=== PATIENT | male | born 1940 | race Caucasian/White ===

== ENCOUNTER 2016-11-17 15:01 | Inpatient (IN) | payer OTHER ==
[~2016-11-17] VITALS: Ht 175.3 cm; Wt 98.0 kg
[2016-11-17] VITALS (7 sets, daily range): BP systolic 140–179; BP diastolic 79–114; PULSE 48–92; RESP 17–20; TEMP 95.9–97.7; O2SAT 93–98
[2016-11-17] MEDS: D5-NS + KCL 20 MEQ INJ 1,000 ML IV SCH (00:30)
[~2016-11-17 15:01] MED LIST: LACTATED RINGER'S 1000 ML INJ 3,000 ML IV ONE; NEOSTIGMINE 3 MG/3 ML SYR IV ONE; ONDANSETRON HCL 4 MG/2 ML VIAL IV PUSH ONE; PROPOFOL 200 MG/20 ML AMP IV ONE; ePHEDrine/NS 50 MG/5 ML SYR IV ONE
[2016-11-17] MEDS ORDERED: LIPI10TA PO (15:59)
[2016-11-17] MEDS ORDERED: ASPI81CH CHEW (15:59)
[2016-11-17] MEDS ORDERED: SODIUM CHLOR 0.9% 1000 ML INJ 1,000 ML IV SCH ×2 (16:08→16:50)
[2016-11-17] MEDS ORDERED: SODIUM CHLORIDE 0.9% FLUSH 5 ML FLUSH IVF PRN ×2 (16:15→23:45)
[2016-11-17] MEDS ORDERED: ONDANSETRON HCL 4 MG/2 ML VIAL IVP ONE (16:15)
[2016-11-17] MEDS ORDERED: MORPHINE SULFATE 4 MG/ML INJ IV PUSH ONE (16:15)
--- NOTE | 2016-11-17 16:32 | PD ---
HPI Chief Complaint: Abdominal Pain Time Seen by Provider: 16:00 Travel History International Travel<30 days: Yes Contact w/Intl Traveler<30days: Yes Name of Country Traveled to: [place] Traveled to known affect area: No History of Present Illness HPI 76-year-old male with history of CAD, stents, hyperlipidemia, from [place], sent in from an outpatient radiology center after CT abdomen pelvis today showed an incarcerated periumbilical hernia with bowel obstruction. Patient reports that he has been vomiting for the past 5 days and unable to tolerate by mouth. Last bowel movement was about 5 days ago. He reports history of umbilical hernia repair about 15 years ago with what he believes was with mesh. No other abdominal surgeries. The patient noticed that the hernia was protruding yesterday evening. He has a moderate amount of pain in this area. PFSH Past Medical History High Cholesterol: Yes Diminished Hearing: Yes ([place]) Immunizations Current: Yes Tetanus Vaccination: Unknown Influenza Vaccination: Yes Past Surgical History Abdominal Surgery: Yes (umbilical hernia) Coronary Stent: Yes Other Surgery: Yes (valve) Social History Alcohol Use: Yes (occ) Tobacco Use: No Substance Use: No Allergies-Medications (Allergen,Severity, Reaction): Coded Allergies: No Known Allergies (Unverified , 11/17/16) Reported Meds & Prescriptions Reported Meds & Active Scripts Active Reported Aspirin 81 Mg Chew 81 Mg CHEW DAILY Lipitor (Atorvastatin Calcium) 10 Mg Tab 10 Mg PO HS Review of Systems Except as stated in HPI: all other systems reviewed are Neg Physical Exam Narrative GENERAL: Well-developed, well-nourished, no distress. SKIN: Warm and dry. Anterior abdominal wall/periumbilical area is erythematous and slightly dusky. HEAD: Atraumatic. Normocephalic. EYES: Pupils equal and round. No scleral icterus. No injection or drainage. ENT: Mucous membranes pink and moist. CARDIOVASCULAR: Regular rate and rhythm. No murmur appreciated. RESPIRATORY: No accessory muscle use. Clear to auscultation. Breath sounds equal bilaterally. GASTROINTESTINAL: Abdomen soft, nondistended. Mild diffuse tenderness without peritoneal signs. There is a moderate sized periumbilical hernia that is firm with skin changes as above, unable to be reduced. MUSCULOSKELETAL: No obvious deformities. No clubbing. No cyanosis. No edema. NEUROLOGICAL: Awake and alert. No obvious cranial nerve deficits. Motor grossly within normal limits. Normal speech. PSYCHIATRIC: Appropriate mood and affect; insight and judgment normal. Data Data Last Documented VS Vital Signs Date Time Temp Pulse Resp B/P Pulse Ox O2 Delivery O2 Flow Rate FiO2 11/17/16 16:00 92 18 179/107 98 Room Air 11/17/16 15:26 97.7 Orders Complete Blood Count With Diff (11/17/16 16:08) Comprehensive Metabolic Panel (11/17/16 16:08) Lactic Acid (11/17/16 16:08) Prothrombin Time / Inr (Pt) (11/17/16 16:08) Act Partial Throm Time (Ptt) (11/17/16 16:08) Iv Access Insert/Monitor (11/17/16 16:08) Ecg Monitoring (11/17/16 16:08) Oximetry (11/17/16 16:08) Morphine Inj (Morphine Inj) (11/17/16 16:15) Ondansetron Inj (Zofran Inj) (11/17/16 16:15) Sodium Chlor 0.9% 1000 Ml Inj (Ns 1000 M (11/17/16 16:08) Sodium Chloride 0.9% Flush (Ns Flush) (11/17/16 16:15) Electrocardiogram (11/17/16 16:08) Ng Gastric Tube Insert/Monitor (11/17/16 16:48) Sodium Chlor 0.9% 1000 Ml Inj (Ns 1000 M (11/17/16 16:50) Admit Order (Ed Use Only) (11/17/16 16:59) ^ Notify Upon Admission (11/17/16 16:59) Consult Hospitalist (11/17/16 ) Labs Laboratory Tests Test 11/17/16 16:25 White Blood Count 8.3 TH/MM3 Red Blood Count 6.21 MIL/MM3 Hemoglobin 18.1 GM/DL Hematocrit 55.5 % Mean Corpuscular Volume 89.3 FL Mean Corpuscular Hemoglobin 29.2 PG Mean Corpuscular Hemoglobin 32.7 % Concent Red Cell Distribution Width 13.4 % Platelet Count 174 TH/MM3 Mean Platelet Volume 7.7 FL Neutrophils (%) (Auto) 78.9 % Lymphocytes (%) (Auto) 6.1 % Monocytes (%) (Auto) 13.8 % Eosinophils (%) (Auto) 0.1 % Basophils (%) (Auto) 1.1 % Neutrophils # (Auto) 6.6 TH/MM3 Lymphocytes # (Auto) 0.5 TH/MM3 Monocytes # (Auto) 1.1 TH/MM3 Eosinophils # (Auto) 0.0 TH/MM3 Basophils # (Auto) 0.1 TH/MM3 CBC Comment DIFF FINAL Differential Comment AUTO DIFF CONFIRMED Platelet Estimate NORMAL Platelet Morphology Comment NORMAL Prothrombin Time 11.9 SEC Prothromb Time International 1.1 RATIO Ratio Activated Partial 27.3 SEC Thromboplast Time Sodium Level 137 MEQ/L Potassium Level 3.5 MEQ/L Chloride Level 99 MEQ/L Carbon Dioxide Level 24.9 MEQ/L Anion Gap 13 MEQ/L Blood Urea Nitrogen 55 MG/DL Creatinine 1.40 MG/DL Estimat Glomerular Filtration 49 ML/MIN Rate Random Glucose 136 MG/DL Lactic Acid Level 2.0 mmol/L Calcium Level 9.8 MG/DL Total Bilirubin 1.2 MG/DL Aspartate Amino Transf 37 U/L (AST/SGOT) Alanine Aminotransferase 30 U/L (ALT/SGPT) Alkaline Phosphatase 73 U/L Total Protein 7.4 GM/DL Albumin 3.0 GM/DL MDM Medical Decision Making Medical Screen Exam Complete: Yes Emergency Medical Condition: Yes Interpretation(s) EKG: Atrial flutter, rate 62, normal axis, normal intervals, nonspecific lateral ST/T changes, no ST segment elevations. Differential Diagnosis Strangulated umbilical hernia, incarcerated umbilical hernia, bowel obstruction Narrative Course CT abdomen pelvis reading from today obtained and shows a periumbilical anterior abdominal hernia containing small bowel loops and causing moderate to severe proximal small bowel instruction. Ice placed to hernia site. I attempted to reduce the hernia at the bedside, however I was unsuccessful. 4:46 PM: Case discussed with on-call general surgeon Dr. Stein. He recommends NG tube placement and transfer to the [facility] where he will evaluate the patient and discuss surgical management with the patient. Patient was made aware of plan for admission to the [facility] for likely operative repair of strangulated umbilical hernia with small bowel obstruction. The patient will be transferred emergently. NG tube placed by nurse. There is a small amount of blood returned. No other material was aspirated from the stomach. Blood could be secondary to local trauma secondary to NG tube placement. The patient was given a dose of Protonix in case this is a gastric ulcer that is bleeding. Diagnosis Primary Impression: Incarcerated umbilical hernia Additional Impression: Small bowel obstruction Admitting Information Admitting Physician Requests: Admit Scot Lawton MD Nov 17, 2016 16:32
[2016-11-17 16:44] LABS: AUTOMATED NEUTROPHIL # 6.6 TH/MM3 (1.8-7.7); BASOPHIL # 0.1 TH/MM3 (0-0.2); BASOPHIL % 1.1 % (0.0-2.0); EOSINOPHIL % 0.1 % (0.0-4.0); HEMATOCRIT 55.5 % (39.0-51.0); HEMO FLAGS DIFF FINAL; LYMPH % 6.1 % (9.0-44.0); LYMPHOCYTE # 0.5 TH/MM3 (1.0-4.8); MEAN CELL VOLUME 89.3 FL (80.0-100.0); MEAN CORPUSCULAR HEMOGLOBIN 29.2 PG (27.0-34.0); MEAN CORPUSCULAR HGB CONC 32.7 % (32.0-36.0); MONO % 13.8 % (0.0-8.0); NEUT % 78.9 % (16.0-70.0); PLATELET COUNT 174 TH/MM3 (150-450); RED BLOOD COUNT 6.21 MIL/MM3 (4.50-5.90); RED CELL DISTRIBUTION WIDTH 13.4 % (11.6-17.2); WHITE BLOOD COUNT 8.3 TH/MM3 (4.0-11.0)
[2016-11-17 16:45] LABS: CHLORIDE 99 MEQ/L (98-107); POTASSIUM 3.5 MEQ/L (3.5-5.1); SODIUM (NA) 137 MEQ/L (136-145)
[2016-11-17 16:48] LABS: ANION GAP 13 MEQ/L (5-15); BICARBONATE 24.9 MEQ/L (21.0-32.0); BLOOD UREA NITROGEN 55 MG/DL (7-18)
[2016-11-17 16:50] LABS: APTT (PATIENT) 27.3 SEC (24.3-30.1); INTERNATIONAL NORMALIZED RATIO 1.1 RATIO; PROTHROMBIN TIME - PATIENT 11.9 SEC (9.8-11.6)
[2016-11-17 16:51] LABS: ALT (GPT) 30 U/L (12-78); AST (GOT) 37 U/L (15-37); GLOMERULAR FILTRATION RATE 49 ML/MIN (>89)
[2016-11-17 16:53] LABS: TOTAL BILIRUBIN ADULT 1.2 MG/DL (0.2-1.0)
[2016-11-17 16:54] LABS: ALKALINE PHOSPHATASE 73 U/L (45-117)
[2016-11-17 17:29] LABS: PLATELET ESTIMATE SMEAR NORMAL (NORMAL); PLATELET MORPHOLOGY NORMAL (NORMAL); SCAN/DIFF AUTO DIFF CONFIRMED
[2016-11-17] MEDS: PANTOPRAZOLE SODIUM 40 MG VIAL IV PUSH ONE ×2 (17:48→21:38)
[2016-11-17] MEDS ORDERED: ceFAZolin 2 GM PREMIX 50 ML IV SCH (19:45)
[2016-11-17] MEDS ORDERED: SODIUM CHLORID 0.9% 500 ML IV SCH (20:30)
[2016-11-17] MEDS ORDERED: LACTATED RINGER'S 1000 ML IV SCH (20:30)
[2016-11-17] MEDS ORDERED: BUPIVACAINE/EPINEPHRINE 0.25% PF 30 ML VIAL ONE (20:49)
[2016-11-17] MEDS ORDERED: LIDOCAINE 1%/EPINEPHrine 1:100,000 SOLN 20 ML VIAL ONE (20:50)
[2016-11-17] MEDS ORDERED: metroNIDAZOLE 500 MG INJ 100 ML IV ONE (21:10)
[2016-11-17] MEDS ORDERED: ceFAZolin INJ 1,000 MG VIAL IV ONE (21:39)
[2016-11-17 22:29] LABS: HEMATOCRIT 38.1 % (39.0-51.0)
[2016-11-17 22:34] LABS: BLOOD GAS BASE EXCESS -3.1 mmol/L (-2-2); BLOOD GAS CARBOXYHEMOGLOBIN 1.9 % (0-4); BLOOD GAS HCO3 21 mmol/L (22-26); BLOOD GAS O2 HGB SATURATION 96 % (90-100); BLOOD GAS OXYGEN CONTENT 18.9 Vol % (12.0-20.0); BLOOD GAS PCO2 37 mmHg (38-42); BLOOD GAS PO2 163 mmHg (61-120); BLOOD GAS TOTAL HGB 13.7 G/DL (12.0-16.0); TEMP CORR TO 98.6
[2016-11-17 22:35] LABS: CRITICAL VALUE NO; DRAW SITE ART LINE; FIO2 50 %; OXYGEN DEVICE O R ABG; STAT YES
--- NOTE | 2016-11-17 23:31 | HHI.PR ---
Immediate Post Op Note Procedure Date: Nov 17, 2016 Pre Op Diagnosis: strangulated, incarcerated incisional hernia Post Op Diagnosis: same, necrotic small bowel Surgeon: Daquan Stein MD [employer](s): see or sheet Procedure: repair of incisional, incarcerated umbilical hernia, small bowel resection with primary anastomosis Findings: necrotic strangulated small bowel Complications: none Specimen(s) removed: small bowel, hernia sac Estimated blood loss: 100 Anesthesia: General Drains: NAI (10F sub q) IVF (9050) Patient to: PACU Patient Condition: Fair Daquan Stein MD Nov 17, 2016 23:31
[2016-11-17] MEDS ORDERED: DO NOT ADM ANY ANTICOAGULANT DRUGS XX PRN (23:41)
[2016-11-17] MEDS ORDERED: Post-op Orders (for Pharmacy) MISC XX ONE (23:41)
[2016-11-17] MEDS ORDERED: diphenhydrAMINE HCL 50 MG/ML VIAL IV PRN (23:45)
[2016-11-17] MEDS ORDERED: MORPHINE SULFATE 4 MG/ML INJ IV PRN (23:45)
[2016-11-17] MEDS ORDERED: NALOXONE HCL 0.4 MG/ML AMP IV PRN (23:45)
[2016-11-17] MEDS ORDERED: ONDANSETRON HCL 4 MG/2 ML VIAL IV PRN (23:45)
[2016-11-17] MEDS ORDERED: ACETAMINOPHEN/HYDROcodone 325 MG/5 MG TAB PO PRN (23:45)
[2016-11-17] MEDS ORDERED: fentaNYL CITRATE 250 MCG/5 ML AMP ONE ×2 (23:55)
[2016-11-18] VITALS (15 sets, daily range): BP systolic 118–161; BP diastolic 66–98; PULSE 52–78; RESP 14–22; TEMP 97.5–98; O2SAT 93–96
[2016-11-18 00:28] LABS: AUTOMATED NEUTROPHIL # 2.5 TH/MM3 (1.8-7.7); BASOPHIL % 0.1 % (0.0-2.0); EOSINOPHIL % 0.6 % (0.0-4.0); HEMO FLAGS DIFF FINAL; LYMPH % 10.6 % (9.0-44.0); LYMPHOCYTE # 0.3 TH/MM3 (1.0-4.8); MEAN CELL VOLUME 87.1 FL (80.0-100.0); MEAN CORPUSCULAR HEMOGLOBIN 30.3 PG (27.0-34.0); MEAN CORPUSCULAR HGB CONC 34.7 % (32.0-36.0); MONO % 10.8 % (0.0-8.0); NEUT % 77.9 % (16.0-70.0); PLATELET COUNT 115 TH/MM3 (150-450); RED BLOOD COUNT 5.28 MIL/MM3 (4.50-5.90); RED CELL DISTRIBUTION WIDTH 13.8 % (11.6-17.2); WHITE BLOOD COUNT 3.2 TH/MM3 (4.0-11.0)
--- NOTE | 2016-11-18 00:31 | RADRPT ---
EXAM DATE/TIME: 11/17/2016 23:52 [facility] COMPARISON: No previous studies available for comparison. INDICATIONS : Nasogastric tube placement post hernia repair. MEDICAL HISTORY : None. SURGICAL HISTORY : CABG. Umbilical hernia repair. ENCOUNTER: Initial ACUITY: 1 day PAIN SCORE: 0/10 LOCATION: Bilateral chest FINDINGS: A single view of the chest is obtained. Status post CABG. Nasogastric tube tip in stomach. Minimal b ibasilar subsegmental atelectasis. The cardiomediastinal contours are unremarkable. Osseous structur es are intact. CONCLUSION: 1. Bibasilar subsegmental atelectasis. 2. Nasogastric tube with tip in stomach. Evaristo Reddy MD on November 18, 2016 at 0:27 Board Certified Radiologist. This report was verified electronically.
[2016-11-18] MEDS: KETOROLAC TROMETHAMINE 30 MG/ML (IVP) VIAL IVP PRN ×2 (00:33→20:30)
[2016-11-18 00:47] LABS: BICARBONATE 24.4 MEQ/L (21.0-32.0); POTASSIUM 3.4 MEQ/L (3.5-5.1)
--- NOTE | 2016-11-18 01:44 | PD.CONS ---
HPI Service Critical Care Medicine Consult Requested By Primary Care Physician Non-Staff History of Present Illness HPI 76-year-old male with history of CAD, stents, hyperlipidemia, from [place], sent in from an outpatient radiology center after CT abdomen pelvis today showed an incarcerated periumbilical hernia with bowel obstruction. Patient reports that he has been vomiting for the past 5 days and unable to tolerate by mouth. Last bowel movement was about 5 days ago. He reports history of umbilical hernia repair about 15 years ago with what he believes was with mesh. No other abdominal surgeries. The patient noticed that the hernia was protruding yesterday evening. He had a moderate amount of pain in this area. Patient was transferred from [facility] to [facility] after being accepted by Dr. Setin from general surgery. He underwent repair of incisional , incarcerated umbilical hernia, small bowel resection with primary anastomosis under general anesthesia, EBL 100 cc, extubated postoperatively and transferred to PACU. He was noted to be in atrial flutter on a postop EKG with heart rate in the 60s. I reviewed his telemetry strip done around 3 PM from 12:30 which shows that patient has been in atrial flutter. Critical care consult was requested by Dr. Stein for medical management postoperatively. Patient tells me that he has had a history of irregular heartbeat about 4 years ago after surgery however is not aware of any atrial flutter of fibrillation recently. When I evaluated the patient he was laying in the PACU stretcher appeared comfortable in no acute distress. History was obtained by reviewing records and discussion with patient and nursing staff. Patient denies any chest pain, palpitations, shortness of breath currently. He does have some pain at the surgical site. History PFSH Past Medical History High Cholesterol: Yes Diminished Hearing: Yes ([place]) Immunizations Current: Yes Tetanus Vaccination: Unknown Influenza Vaccination: Yes Past Surgical History Abdominal Surgery: Yes (umbilical hernia) Coronary Stent: Yes Other Surgery: Yes (valve) Social History Alcohol Use: Yes (occ) Tobacco Use: No Substance Use: No Allergies-Medications Allergies-Medications (Allergen,Severity, Reaction): Coded Allergies: No Known Allergies (Unverified , 11/17/16) Reported Meds & Prescriptions Reported Meds & Active Scripts Active Reported Aspirin 81 Mg Chew 81 Mg CHEW DAILY Lipitor (Atorvastatin Calcium) 10 Mg Tab 10 Mg PO HS ROS Review of Systems Except as stated in HPI: all other systems reviewed are Neg Past Family Social History Allergies: Coded Allergies: No Known Allergies (Unverified , 11/17/16) Physical Exam Vital Signs Vital Signs Date Time Temp Pulse Resp B/P Pulse Ox O2 Delivery O2 Flow Rate FiO2 11/18/16 00:50 97.9 68 17 141/86 96 Nasal Cannula 3 11/18/16 00:30 69 16 142/87 95 Nasal Cannula 3 11/18/16 00:15 69 16 142/94 95 Nasal Cannula 3 11/18/16 00:00 62 15 155/90 94 Nasal Cannula 3 11/17/16 23:45 98.2 63 18 148/62 95 Nasal Cannula 3 11/17/16 20:00 95.9 65 20 169/103 94 11/17/16 19:20 57 18 140/91 97 11/17/16 18:50 51 20 148/79 96 Room Air 11/17/16 17:38 48 18 166/96 96 Room Air 11/17/16 17:35 98 Room Air 11/17/16 16:00 92 18 179/107 98 Room Air 11/17/16 15:26 97.7 84 17 159/114 93 Physical Exam Narrative GENERAL: Well-developed, well-nourished, no distress. SKIN: Warm and dry. Anterior abdominal wall/periumbilical area is erythematous and slightly dusky around surgical dressing site. HEAD: Atraumatic. Normocephalic. EYES: Pupils equal and round. No scleral icterus. No injection or drainage. ENT: Mucous membranes pink and moist. CARDIOVASCULAR: Regular rate and rhythm. No murmur appreciated. RESPIRATORY: No accessory muscle use. Clear to auscultation. Breath sounds equal bilaterally. GASTROINTESTINAL: Abdomen soft, nondistended. Dressing over surgical site which is clean dry and intact, erythema noted Surrounding skin over anterior abdominal wall. MUSCULOSKELETAL: No obvious deformities. No clubbing. No cyanosis. No edema. NEUROLOGICAL: Awake and alert. No obvious cranial nerve deficits. Motor grossly within normal limits. Normal speech. PSYCHIATRIC: Appropriate mood and affect; insight and judgment normal. Laboratory Laboratory Tests Test 11/17/16 11/17/16 11/17/16 11/18/16 16:25 22:01 22:15 00:13 White Blood Count 8.3 3.2 Red Blood Count 6.21 5.28 Hemoglobin 18.1 12.8 16.0 Hematocrit 55.5 38.1 46.0 Mean Corpuscular Volume 89.3 87.1 Mean Corpuscular Hemoglobin 29.2 30.3 Mean Corpuscular Hemoglobin 32.7 34.7 Concent Red Cell Distribution Width 13.4 13.8 Platelet Count 174 115 Mean Platelet Volume 7.7 7.2 Neutrophils (%) (Auto) 78.9 77.9 Lymphocytes (%) (Auto) 6.1 10.6 Monocytes (%) (Auto) 13.8 10.8 Eosinophils (%) (Auto) 0.1 0.6 Basophils (%) (Auto) 1.1 0.1 Neutrophils # (Auto) 6.6 2.5 Lymphocytes # (Auto) 0.5 0.3 Monocytes # (Auto) 1.1 0.3 Eosinophils # (Auto) 0.0 0.0 Basophils # (Auto) 0.1 0.0 CBC Comment DIFF FINAL DIFF FINAL Differential Comment AUTO DIFF CONFIRMED Platelet Estimate NORMAL Platelet Morphology Comment NORMAL Prothrombin Time 11.9 Prothromb Time International 1.1 Ratio Activated Partial 27.3 Thromboplast Time Sodium Level 137 139 Potassium Level 3.5 3.4 Chloride Level 99 104 Carbon Dioxide Level 24.9 24.4 Anion Gap 13 11 Blood Urea Nitrogen 55 45 Creatinine 1.40 0.94 Estimat Glomerular Filtration 49 78 Rate Random Glucose 136 120 Lactic Acid Level 2.0 Calcium Level 9.8 8.0 Total Bilirubin 1.2 Aspartate Amino Transf 37 (AST/SGOT) Alanine Aminotransferase 30 (ALT/SGPT) Alkaline Phosphatase 73 Total Protein 7.4 Albumin 3.0 Blood Gas Puncture Site ART LINE Blood Gas Patient Temperature 98.6 Blood Gas HCO3 21 Blood Gas Base Excess -3.1 Blood Gas Oxygen Saturation 96 Arterial Blood pH 7.38 Arterial Blood Partial 37 Pressure CO2 Arterial Blood Partial 163 Pressure O2 Arterial Blood Oxygen Content 18.9 Arterial Blood 1.9 Carboxyhemoglobin Arterial Blood Methemoglobin 1.0 Blood Gas Hemoglobin 13.7 Oxygen Delivery Device O R ABG Blood Gas Inspired Oxygen 50 Result Diagram: 11/18/16 0013 11/18/16 0013 Imaging Last Impressions Chest X-Ray 11/17/16 0000 Signed Impressions: Service Date/Time: Thursday, November 17, 2016 23:52 - CONCLUSION: 1. Bibasilar subsegmental atelectasis. 2. Nasogastric tube with tip in stomach. Evaristo Reddy MD Assessment and Plan Assessment and Plan 76-year-old male with: Strangulated umbilical hernia with ischemic small bowel status post repair of incisional, incarcerated umbilical hernia, small bowel resection with primary anastomosis Chronic atrial flutter Coronary artery disease Hyperlipidemia Plan: Neuro: Continue pain medications per Dr. Stein. Cardiovascular: Noted to be in atrial flutter on telemetry strip preoperatively. Rate controlled currently. Cardiology consult requested by Dr. Stein. May need beta lexis, anticoagulation, 2-D echo to evaluate for clots-we'll defer to cardiology. ASA, Statin when tolerating PO. Pulmonary: Supplemental O2 if needed. GI/liver: Nothing by mouth for now. NG to low intermittent wall suction. Status post repair of incisional incarcerated umbilical hernia, small bowel resection with primary anastomosis, being followed by general surgery Dr. Stein. Renal/: IV hydration, strict intake output, monitor and replete electro lites , follow BUN/creatinine. Endocrine: SSI for glycemic control if needed. Heme: Follow CBC Prophylaxis: PPI/SCDs. Start subcutaneous Lovenox when okay with general surgery. Critical care will follow as needed. We'll consult hospitalist service for further medical management as patient may be transferred out of ICU following cardiology evaluation in a.. . Elias Mccord MD Nov 18, 2016 01:44
[2016-11-18] MEDS: metroNIDAZOLE 500 MG INJ 100 ML IV SCH ×3 (05:00→20:31)
[2016-11-18] MEDS: PANTOPRAZOLE SODIUM 40 MG VIAL IV SCH (05:33)
[2016-11-18 07:02] LABS: POTASSIUM 3.5 MEQ/L (3.5-5.1)
--- NOTE | 2016-11-18 08:06 | MH ---
cc: CRISTOBAL BISHOP MD DATE OF ADMISSION: 11/17/2016 CHIEF COMPLAINT Abdominal pain, obstruction. HISTORY OF PRESENT ILLNESS The patient is a 76-year-old male with coronary artery disease, cardiac stents of the cardiac bowel replacement who presented with a approximately five day history of nausea and vomiting, abdominal pain. The patient further with history of umbilical hernia repair several years ago. The patient noted in the last three months to have recurrence of local hernia. The patient states the last five days the hernia has not been able to reduce and he has gotten acutely worse over this time with significant multiple episodes of nausea, vomiting and no bowel movements or passing flatus. He came the emergency department for further workup with CT scan showing incarcerated small bowel with small bowel obstruction. The patient also with significant pain initially he 8/10, currently 4/10 and waxing, sharp, localized to the umbilical region, worse with movement better with lying still. The patient further denied fevers, chills or any diarrhea. The patient states hernia repair had been doing well until this incident recently. The patient is also somewhat poor historian regards to past medical history. EXAMINATION: On my exam the patient is distended he has an NG tube in place. He does have a palpable abdominal wall, non reducible, incarcerated hernia with surrounding skin erythema. PAST MEDICAL HISTORY 1. Hypercholesteremia 2. Coronary artery disease status post stent and valve. 3. Status post triple abdominal aortic aneurysm repair. PAST SURGICAL HISTORY 1. Umbilical hernia 2 years ago 2. Coronary stents 3. Cardiac valve. 4. Abdominal aortic aneurysm, endovascular repair. SOCIAL HISTORY Occasional ethyl alcohol. Denies current tobacco use, previous history multiple years ago denies IVDA. ALLERGIES Known drug allergies. MEDICATIONS 1. Aspirin. 2. Lipitor FAMILY HISTORY The patient denies diabetes and parents have father with edema and mother with Alzheimer's disease both . REVIEW OF SYSTEMS GENERAL: The patient no acute distress. Denies fevers. HEAD, EYES, EARS, NOSE, AND THROAT: Denies eye pain, ear pain. Scleral icterus. NECK: Denies adenopathy or tenderness. CARDIOVASCULAR: Denies palpitations or chest pain does have a irregular heartbeat. RESPIRATORY: Denies cough or shortness of breath. ABDOMEN: Complains of nausea or abdominal pain. MUSCULOSKELETAL: Denies myalgias or arthralgias. NEUROLOGIC: Denies numbness or altered sensation. PSYCHIATRIC: Denies altered mood or altered judgment. GENITOURINARY: Denies dysuria, hematuria. PHYSICAL EXAMINATION IN GENERAL: No acute distress. VITAL SIGNS: Temperature is 95.9, pulse 65, respirations 20, blood pressure 169/103. 94% saturation on room air. HEAD, EYES, EARS, NOSE, AND THROAT: Pupils equal, round, reactive to light and accommodation, extraocular muscles intact. NECK: Supple, nontender. Trachea midline. HEART: S1-S2. No tachycardia. LUNGS: Clear bilateral expansion. ABDOMEN: Soft. Positive distension. Positive tenderness to palpation in the supraumbilical, periumbilical area, palpable incarcerated and non reducible hernia with skin erythema. EXTREMITIES: Moving all extremities, warm, well-perfused. NEUROLOGIC: GCS 15, no numbness. GENITOURINARY: Within normal limits. LABORATORY AND DIAGNOSTIC DATA WBC of 0.2, hemoglobin 18.1, hematocrit 55.5 platelets 174, sodium 137. Potassium 3.5,BUN 55, creatinine 1.4, glucose 106 , AST 37, ALT 30. Alkaline phosphatase 73, albumin 3, INR is 1.1. PT 11.9, PTT 27.3. RADIOLOGIC: Radiologic data CT abdomen, pelvis outpatient at [facility] was reviewed by myself. Showing incarcerated small bowel, ventral hernia with dilated proximal bowel and decompressed distal bowel evidence of aortic graft. ASSESSMENT: The patient is a 76 year old male, multiple medical issues previous umbilical hernia now with recurrent incisional incarcerated strangulated ventral hernia. PLAN After full radiologic clinical laboratory workup, the patient with above-named complaint including incarcerated, strangulated, ventral hernia with small bowel obstruction. An nasogastric tube placed. The patient will need to go emergently to the operating room for open hernia repair, possible small bowel resection, possible drain placement. This was discussed with the patient in detail, I discussed further with the patient's fact of significant cardiac history of the fact that we will consult cardiology postoperatively for further evaluation. The patient again is emergent and needs to go to the operating room in order to alleviate current condition. We will start on antibiotics, continue n.p.o., NG tube to suction, IV fluids as the patient is very hemo-concentrated. I will give further boluses, I will obtain electrocardiogram. The patient likely needs postoperative ICU for close monitoring. MD Samy Slade /11:45 PM /6:14 AM BETTY
[2016-11-18] MEDS: D5-NS + KCL 20 MEQ INJ 1,000 ML IV SCH ×3 (08:08→23:54)
--- NOTE | 2016-11-18 09:12 | HHI.PR ---
Subjective Remarks Follow-up incarcerated hernia repair 11/18/16-patient seen and examined, denies any abdominal pain. Currently nothing by mouth with NG tube in place. Objective Vitals Vital Signs Date Time Temp Pulse Resp B/P Pulse Ox O2 Delivery O2 Flow Rate FiO2 11/18/16 08:22 97.5 66 19 135/66 11/18/16 07:56 96 Nasal Cannula 2.00 11/18/16 07:00 66 11/18/16 06:00 61 11/18/16 04:00 98.0 67 14 131/70 95 11/18/16 04:00 67 11/18/16 02:00 52 11/18/16 02:00 97.8 62 18 118/72 96 11/18/16 01:15 97.9 68 16 136/84 98 Nasal Cannula 3 11/18/16 00:50 97.9 68 17 141/86 96 Nasal Cannula 3 11/18/16 00:30 69 16 142/87 95 Nasal Cannula 3 11/18/16 00:15 69 16 142/94 95 Nasal Cannula 3 11/18/16 00:00 62 15 155/90 94 Nasal Cannula 3 11/17/16 23:45 98.2 63 18 148/62 95 Nasal Cannula 3 11/17/16 20:00 95.9 65 20 169/103 94 11/17/16 19:20 57 18 140/91 97 11/17/16 18:50 51 20 148/79 96 Room Air 11/17/16 17:38 48 18 166/96 96 Room Air 11/17/16 17:35 98 Room Air 11/17/16 16:00 92 18 179/107 98 Room Air 11/17/16 15:26 97.7 84 17 159/114 93 I/O 11/17/16 11/17/16 11/17/16 11/18/16 11/18/16 11/18/16 06:59 14:59 22:59 06:59 14:59 22:59 Intake Total 1125 ml 5089 ml Output Total 50 ml 1180 ml Balance 1075 ml 3909 ml Intake Oral 0 ml IV Total 1125 ml 589 ml Other 4500 ml Output Urine Total 1000 ml Gastric Drainage Total 50 ml 60 ml Drainage Total 20 ml Estimated Blood Loss 100 ml # Bowel Movements 0 Result Diagram: 11/18/16 0013 11/18/16 0458 Imaging Last Impressions Chest X-Ray 11/17/16 0000 Signed Impressions: Service Date/Time: Thursday, November 17, 2016 23:52 - CONCLUSION: 1. Bibasilar subsegmental atelectasis. 2. Nasogastric tube with tip in stomach. Evaristo Reddy MD Objective Remarks GENERAL: NAD SKIN: Warm and dry. HEAD: Normocephalic. EYES: No scleral icterus. No injection or drainage. NECK: Supple, trachea midline. No JVD or lymphadenopathy. CARDIOVASCULAR: Regular rate and rhythm without murmurs, gallops, or rubs. RESPIRATORY: Breath sounds equal bilaterally. No accessory muscle use. GASTROINTESTINAL: Abdomen soft, non-tender, mildly distended. Incision c/d/i; NAI drain in place MUSCULOSKELETAL: No cyanosis, or edema. BACK: Nontender without obvious deformity. No CVA tenderness. A/P Assessment and Plan 76-year-old male with 1-Strangulated umbilical hernia with ischemic small bowel status post repair of incisional, incarcerated umbilical hernia, small bowel resection with primary anastomosis> currently nothing by mouth, continue IV fluid hydration 2-Chronic atrial flutter: Rate controlled currently. Cardiology consult requested by Dr. Stein. May need beta lexis, anticoagulation, 2-D echo to evaluate for clots-we'll defer to cardiology 3-Coronary artery disease: ASA, Statin when tolerating PO 4-Hyperlipidemia: Statin when tolerating PO Prophylaxis: PPI/SCDs. Start subcutaneous Lovenox when okay with general surgery. Evaristo Hui MD Nov 18, 2016 09:12
--- NOTE | 2016-11-18 11:28 | MB ---
cc: RACHID GERONIMO MD DATE OF CONSULTATION: 11/18/2016 REASON FOR CONSULTATION: Atrial fibrillation and a history aortic valve replacement. HISTORY OF PRESENT ILLNESS: Mr. Godwin is a 76-year-old [place] who reports that he has a history of a aortic valve bioprosthesis and mitral valve repair approximately 4 years ago. He denies any significant coronary artery disease requiring bypass or stent. He notes that he has had an aortic stent. The patient presented with abdominal pain and underwent a small bowel resection for a strangulated umbilical hernia. Post operative he went into atrial fibrillation with a controlled ventricular rate. Cardiology was subsequently consulted. PAST MEDICAL HISTORY: Past medical history significant for aortic bioprosthetic aortic valve replacement, Mitral valve repair, aortic stent, hyperlipidemia. He denies any prior history of hypertension. Atrial fibrillation status post ablation. SOCIAL HISTORY The patient occasionally has any alcohol. He denies any tobacco use. OUTPATIENT MEDICATIONS Include 1. Aspirin. 2. Lipitor. ALLERGIES NO KNOWN DRUG ALLERGIES. FAMILY HISTORY Noncontributory. REVIEW OF SYSTEMS Except what is mentioned in HPI all 12 systems are negative. PHYSICAL EXAMINATION: VITAL SIGNS: On physical examination vital signs 97.5, 66, 19, 135/66. IN GENERAL: He is a well-appearing man who is in no apparent distress. NECK: His neck is free from JVD. LUNGS: The lungs have some rales in the bases. CARDIOVASCULAR SYSTEM: On cardiovascular examination he has a normal S1 and S2, I did not appreciate any murmurs, rubs or gallops. ABDOMEN: The abdomen is soft. EXTREMITIES: The extremities are free from edema. LABORATORY FINDINGS Significant for creatinine of 0.97. Hemoglobin is 16. Telemetry - currently shows normal sinus rhythm. IMPRESSION 1. Atrial fibrillation - the patient does have a history of the same and is status post ablation. He reports to his knowledge he has not had any recurrence since his surgery. At this point he has converted back into normal sinus rhythm. His heart rate is a bit on the bradycardic side, thus I do not think I would add any A-V joselito blockers at this time. Regarding anticoagulation. The patient Ren's Vas score is 3 for age over 75 and hypertension. He does not appear to be reasonable candidate for anticoagulation given his postop status. If the patient continues to have intermittent episodes of atrial fibrillation during his hospitalization. I would consider anti coagulation when felt appropriate by surgery. Again at this point I would not place him on any anticoagulant. 2. Hypertension - the patients blood pressure has been a bit Labile. I would continue observation and pain control at this time. 3. SBO- s/p resection per surgery Available PRN 3. Small bowel status post abdominal surgery, hyperlipidemia as per surgical team. Rachid Geronimo M.D. Sari /10:50 AM /11:07 AM MTDHossein
--- NOTE | 2016-11-18 13:56 | EKG ---
Date Performed: 11/18/2016 Time Performed: 00:09:54 PTAGE: 76 years EKG: ATRIAL FLUTTER/TACHYCARDIA MODERATE VOLTAGE CRITERIA FOR LVH, CONSIDER NORMAL VARIANT INFER IOR MYOCARDIAL INFARCTION , PROBABLY OLD MODERATE T-WAVE ABNORMALITY, CONSIDER ANTEROLATERAL ISCHEMIA ABNORMAL ECG Since PREVIOUS TRACING , no significant change noted PREVIOUS TRACIN11/17/2016 16.10 DOCTOR: Yue Schulz Interpretating Date/Time 11/18/2016 13:54:40
--- NOTE | 2016-11-18 13:57 | EKG ---
Date Performed: 11/17/2016 Time Performed: 16:10:30 PTAGE: 76 years EKG: Atrial flutter with 4:1 conduction Possible inferior infarct - age undetermined Possible an terior infarct - age undetermined Lateral ST-T changes may be due to myocardial ischemia Abnormal ECG NO PREVIOUS TRACING DOCTOR: Yue Schulz Interpretating Date/Time 11/18/2016 13:56:19
--- NOTE | 2016-11-18 19:14 | HHI.PR ---
Subjective Subjective Notes Reports minimal to no pain. Minimal sore throat with NG tube Objective Vitals/I&O Vital Signs Date Time Temp Pulse Resp B/P Pulse Ox O2 Delivery O2 Flow Rate FiO2 11/18/16 17:00 77 11/18/16 16:00 97.8 22 145/82 11/18/16 07:56 96 Nasal Cannula 2.00 Labs Laboratory Tests Test 11/17/16 11/17/16 11/18/16 11/18/16 22:01 22:15 00:13 02:30 Hemoglobin 12.8 16.0 Hematocrit 38.1 46.0 Blood Gas Puncture Site ART LINE Blood Gas Patient Temperature 98.6 Blood Gas HCO3 21 Blood Gas Base Excess -3.1 Blood Gas Oxygen Saturation 96 Arterial Blood pH 7.38 Arterial Blood Partial 37 Pressure CO2 Arterial Blood Partial 163 Pressure O2 Arterial Blood Oxygen Content 18.9 Arterial Blood 1.9 Carboxyhemoglobin Arterial Blood Methemoglobin 1.0 Blood Gas Hemoglobin 13.7 Oxygen Delivery Device O R ABG Blood Gas Inspired Oxygen 50 White Blood Count 3.2 Red Blood Count 5.28 Mean Corpuscular Volume 87.1 Mean Corpuscular Hemoglobin 30.3 Mean Corpuscular Hemoglobin 34.7 Concent Red Cell Distribution Width 13.8 Platelet Count 115 Mean Platelet Volume 7.2 Neutrophils (%) (Auto) 77.9 Lymphocytes (%) (Auto) 10.6 Monocytes (%) (Auto) 10.8 Eosinophils (%) (Auto) 0.6 Basophils (%) (Auto) 0.1 Neutrophils # (Auto) 2.5 Lymphocytes # (Auto) 0.3 Monocytes # (Auto) 0.3 Eosinophils # (Auto) 0.0 Basophils # (Auto) 0.0 CBC Comment DIFF FINAL Differential Comment Sodium Level 139 Potassium Level 3.4 Chloride Level 104 Carbon Dioxide Level 24.4 Anion Gap 11 Blood Urea Nitrogen 45 Creatinine 0.94 Estimat Glomerular Filtration 78 Rate Random Glucose 120 Calcium Level 8.0 Nasal Screen MRSA (PCR) NEGATIVE Test 11/18/16 04:58 Sodium Level 140 Potassium Level 3.5 Chloride Level 105 Carbon Dioxide Level 23.0 Anion Gap 12 Blood Urea Nitrogen 41 Creatinine 0.97 Estimat Glomerular Filtration 75 Rate Random Glucose 132 Calcium Level 8.1 Lungs: Clear Abdomen: Non-distended, Non-tender Extremities: No edema Narrative Exam Abdominal dressing with minimal drainage Urine output 1000ml since surgery NG output 50-60 ml /shift NAI output 20 ml/8hr; serosanguinous A/P Assessment and Plan POD #1 small bowel resection and reduction/primary repair umbilical hernia Had episode A-flutter; now in sinus rhythm Plan: Transfer to floor in AM if no further events D/C razo in AM; reinsert PRN Continue antibiotics Jered Samano MD Nov 18, 2016 19:14
[2016-11-18] MEDS ORDERED: MORPHINE SULFATE 4 MG/ML INJ IV PUSH PRN (19:15)
[2016-11-18] MEDS ORDERED: PHENOL 1.4% SOLN 180 ML BTL OROPHARYNG PRN (19:15)
[2016-11-18] MEDS: SODIUM CHLORIDE 0.9% FLUSH 5 ML FLUSH IVF SCH (20:31)
[2016-11-18] MEDS: ENALAPRILAT 1.25 MG/ML VIAL IV PUSH PRN (20:31)
[2016-11-18] MEDS: DOCUSATE SODIUM 100 MG CAP PO SCH (20:31)
[2016-11-19] VITALS (13 sets, daily range): BP systolic 116–169; BP diastolic 74–91; PULSE 63–72; RESP 14–24; TEMP 97.7–98.2; O2SAT 90–94
[2016-11-19] MEDS ORDERED: metroNIDAZOLE 500 MG INJ 100 ML IV SCH (05:00)
[2016-11-19 05:15] LABS: AUTOMATED NEUTROPHIL # 2.9 TH/MM3 (1.8-7.7); BASOPHIL % 0.1 % (0.0-2.0); EOSINOPHIL # 0.1 TH/MM3 (0-0.4); EOSINOPHIL % 1.8 % (0.0-4.0); HEMATOCRIT 40.7 % (39.0-51.0); HEMO FLAGS DIFF FINAL; LYMPH % 10.3 % (9.0-44.0); LYMPHOCYTE # 0.4 TH/MM3 (1.0-4.8); MEAN CELL VOLUME 87.2 FL (80.0-100.0); MEAN CORPUSCULAR HEMOGLOBIN 29.9 PG (27.0-34.0); MEAN CORPUSCULAR HGB CONC 34.3 % (32.0-36.0); MONO % 16.9 % (0.0-8.0); NEUT % 70.9 % (16.0-70.0); PLATELET COUNT 102 TH/MM3 (150-450); RED BLOOD COUNT 4.67 MIL/MM3 (4.50-5.90); RED CELL DISTRIBUTION WIDTH 13.7 % (11.6-17.2); WHITE BLOOD COUNT 4.1 TH/MM3 (4.0-11.0)
[2016-11-19] MEDS: PANTOPRAZOLE SODIUM 40 MG VIAL IV SCH (05:21)
[2016-11-19 05:58] LABS: BICARBONATE 23.7 MEQ/L (21.0-32.0); POTASSIUM 3.5 MEQ/L (3.5-5.1)
[2016-11-19] MEDS ORDERED: PANTOPRAZOLE SODIUM 40 MG VIAL IV SCH (06:00)
[2016-11-19] MEDS: D5-NS + KCL 20 MEQ INJ 1,000 ML IV SCH ×3 (07:54→21:47)
--- NOTE | 2016-11-19 08:55 | HHI.PR ---
Subjective Remarks Follow-up incarcerated hernia repair 11/18/16-patient seen and examined, denies any abdominal pain. Currently nothing by mouth with NG tube in place. 11/19/16-patient seen and examined; currently rate control and denies any chest pain or shortness of breath. No abdominal pain. Nothing by mouth with NG tube in place. Objective Vitals Vital Signs Date Time Temp Pulse Resp B/P Pulse Ox O2 Delivery O2 Flow Rate FiO2 11/19/16 08:02 93 21 11/19/16 06:00 63 11/19/16 04:00 68 11/19/16 04:00 98.2 68 16 116/79 92 11/19/16 02:00 67 11/19/16 00:00 98.2 71 14 129/78 92 11/19/16 00:00 71 11/18/16 22:00 77 11/18/16 20:00 77 11/18/16 20:00 98.0 78 17 161/98 93 11/18/16 17:00 77 11/18/16 16:00 97.8 77 22 145/82 11/18/16 15:00 75 11/18/16 13:00 75 11/18/16 12:00 97.8 75 22 160/74 11/18/16 11:00 68 11/18/16 09:00 62 I/O 11/18/16 11/18/16 11/18/16 11/19/16 11/19/16 11/19/16 07:00 15:00 23:00 07:00 15:00 23:00 Intake Total 5089 ml 1650 ml 960 ml Output Total 1180 ml 610 ml 505 ml Balance 3909 ml 1040 ml 455 ml Intake Oral 0 ml 30 ml 60 ml IV Total 589 ml 1620 ml 900 ml Other 4500 ml Output Urine Total 1000 ml 550 ml 400 ml Gastric Drainage Total 60 ml 50 ml 100 ml Drainage Total 20 ml 10 ml 5 ml Estimated Blood Loss 100 ml # Bowel Movements 0 0 0 Result Diagram: 11/19/16 0419 11/19/16 0419 Imaging Last Impressions Chest X-Ray 11/17/16 0000 Signed Impressions: Service Date/Time: Thursday, November 17, 2016 23:52 - CONCLUSION: 1. Bibasilar subsegmental atelectasis. 2. Nasogastric tube with tip in stomach. Evaristo Reddy MD Objective Remarks GENERAL: NAD SKIN: Warm and dry. HEAD: Normocephalic. EYES: No scleral icterus. No injection or drainage. NECK: Supple, trachea midline. No JVD or lymphadenopathy. CARDIOVASCULAR: Regular rate and rhythm without murmurs, gallops, or rubs. RESPIRATORY: Breath sounds equal bilaterally. No accessory muscle use. GASTROINTESTINAL: Abdomen soft, non-tender, mildly distended. Incision c/d/i; NAI drain in place MUSCULOSKELETAL: No cyanosis, or edema. BACK: Nontender without obvious deformity. No CVA tenderness. A/P Assessment and Plan 76-year-old male with 1-Strangulated umbilical hernia with ischemic small bowel status post repair of incisional, incarcerated umbilical hernia, small bowel resection with primary anastomosis> currently nothing by mouth, continue IV fluid hydration, IV antibiotics. Management per general surgery 2-Chronic atrial flutter: Rate controlled currently. Appreciate input from cardiology. May need beta lexis, anticoagulation per general surgery, 3-Coronary artery disease: ASA, Statin when tolerating PO 4-Hyperlipidemia: Statin when tolerating PO Prophylaxis: PPI/SCDs. Start subcutaneous Lovenox when okay with general surgery. Evaristo Hui MD Nov 19, 2016 08:55
[2016-11-19] MEDS: SODIUM CHLORIDE 0.9% FLUSH 5 ML FLUSH IVF SCH ×2 (09:00→20:29)
[2016-11-19] MEDS: ceFAZolin 2 GM PREMIX 50 ML IV SCH ×3 (10:31→23:30)
[2016-11-19] MEDS: DOCUSATE SODIUM 100 MG CAP PO SCH ×2 (10:31→20:26)
[2016-11-19] MEDS: metroNIDAZOLE 500 MG INJ 100 ML IV SCH ×2 (10:32→17:40)
--- NOTE | 2016-11-19 12:31 | HHI.PR ---
Subjective Subjective Notes feels well, hungry, no NV Objective Vitals/I&O Vital Signs Date Time Temp Pulse Resp B/P Pulse Ox O2 Delivery O2 Flow Rate FiO2 11/19/16 08:02 93 21 11/19/16 06:00 63 11/19/16 04:00 98.2 16 116/79 11/18/16 07:56 Nasal Cannula 2.00 Labs Laboratory Tests Test 11/19/16 04:19 White Blood Count 4.1 Red Blood Count 4.67 Hemoglobin 14.0 Hematocrit 40.7 Mean Corpuscular Volume 87.2 Mean Corpuscular Hemoglobin 29.9 Mean Corpuscular Hemoglobin 34.3 Concent Red Cell Distribution Width 13.7 Platelet Count 102 Mean Platelet Volume 7.4 Neutrophils (%) (Auto) 70.9 Lymphocytes (%) (Auto) 10.3 Monocytes (%) (Auto) 16.9 Eosinophils (%) (Auto) 1.8 Basophils (%) (Auto) 0.1 Neutrophils # (Auto) 2.9 Lymphocytes # (Auto) 0.4 Monocytes # (Auto) 0.7 Eosinophils # (Auto) 0.1 Basophils # (Auto) 0.0 CBC Comment DIFF FINAL Differential Comment Sodium Level 144 Potassium Level 3.5 Chloride Level 111 Carbon Dioxide Level 23.7 Anion Gap 9 Blood Urea Nitrogen 25 Creatinine 0.71 Estimat Glomerular Filtration 108 Rate Random Glucose 117 Calcium Level 8.3 Cardiovascular: Regular Lungs: Clear Abdomen: Non-distended Extremities: No edema Narrative Exam incision c/d/i, NAI serous A/P Assessment and Plan 76yo male s/p exlap for incarcerated umbilical hernia with enterectomy, stable. - clamp NG, clears, if no N/V today will DC NG - OOB - ok to floor if cardiology is ok with telemetry - d/w family López Becker MD Nov 19, 2016 12:31
[2016-11-20] VITALS (13 sets, daily range): BP systolic 130–179; BP diastolic 63–94; PULSE 52–73; RESP 16–23; TEMP 95.8–98.4; O2SAT 92–96
[2016-11-20] MEDS: metroNIDAZOLE 500 MG INJ 100 ML IV SCH ×4 (00:40→23:52)
[2016-11-20 04:31] LABS: HEMATOCRIT 42.7 % (39.0-51.0); MEAN CELL VOLUME 88.2 FL (80.0-100.0); MEAN CORPUSCULAR HEMOGLOBIN 29.2 PG (27.0-34.0); MEAN CORPUSCULAR HGB CONC 33.1 % (32.0-36.0); PLATELET COUNT 109 TH/MM3 (150-450); RED BLOOD COUNT 4.85 MIL/MM3 (4.50-5.90); RED CELL DISTRIBUTION WIDTH 13.8 % (11.6-17.2); REVIEW FLAG FINAL; WHITE BLOOD COUNT 4.8 TH/MM3 (4.0-11.0)
[2016-11-20 04:53] LABS: BICARBONATE 24.7 MEQ/L (21.0-32.0); POTASSIUM 3.5 MEQ/L (3.5-5.1)
[2016-11-20] MEDS: PANTOPRAZOLE SODIUM 40 MG VIAL IV SCH (05:25)
[2016-11-20] MEDS: D5-NS + KCL 20 MEQ INJ 1,000 ML IV SCH (08:04)
[2016-11-20] MEDS: DOCUSATE SODIUM 100 MG CAP PO SCH ×2 (09:00→19:44)
[2016-11-20] MEDS: SODIUM CHLORIDE 0.9% FLUSH 5 ML FLUSH IVF SCH ×2 (09:00→19:45)
[2016-11-20] MEDS: ceFAZolin 2 GM PREMIX 50 ML IV SCH ×3 (09:15→23:52)
--- NOTE | 2016-11-20 10:32 | HHI.PR ---
Subjective Subjective Notes Up to chair Minimal pain Objective Vitals/I&O Vital Signs Date Time Temp Pulse Resp B/P Pulse Ox O2 Delivery O2 Flow Rate FiO2 11/20/16 09:30 93 21 11/20/16 06:00 64 11/20/16 04:00 98.4 22 165/94 11/18/16 07:56 Nasal Cannula 2.00 Labs Laboratory Tests Test 11/20/16 03:37 White Blood Count 4.8 Red Blood Count 4.85 Hemoglobin 14.1 Hematocrit 42.7 Mean Corpuscular Volume 88.2 Mean Corpuscular Hemoglobin 29.2 Mean Corpuscular Hemoglobin 33.1 Concent Red Cell Distribution Width 13.8 Platelet Count 109 Mean Platelet Volume 7.4 Sodium Level 142 Potassium Level 3.5 Chloride Level 109 Carbon Dioxide Level 24.7 Anion Gap 8 Blood Urea Nitrogen 16 Creatinine 0.79 Estimat Glomerular Filtration 95 Rate Random Glucose 114 Calcium Level 8.5 Cardiovascular: Regular Lungs: Clear Abdomen: Other (transverse incision ---- stapled; c/d/i ) Extremities: No edema A/P Assessment and Plan 76yo male s/p exlap for incarcerated umbilical hernia -DC NGT -Start Full liquids -OOB -Okay to transfer to floor -Appreciate cardiology consult -Transfer to 7N with tele please Attending Statement pt seen at bedside ng minimal output pt doing well d/c ng start clears Attestation The exam, history, and the medical decision-making described in the above note were completed with the assistance of the mid-level provider. I reviewed and agree with the findings presented. I attest that I had a [id number] encounter with the patient on the same day, and personally performed and documented my assessment and findings in the medical record. Patricia Abbott Nov 20, 2016 10:32 Daquan Stein MD Nov 28, 2016 22:59
--- NOTE | 2016-11-20 12:18 | HHI.PR ---
Subjective Remarks Follow-up incarcerated hernia repair 11/18/16-patient seen and examined, denies any abdominal pain. Currently nothing by mouth with NG tube in place. 11/19/16-patient seen and examined; currently rate control and denies any chest pain or shortness of breath. No abdominal pain. Nothing by mouth with NG tube in place. 11/20/16-patient seen and examined, NG tube was removed and patient tolerated clear. Denies any abdominal pain. Objective Vitals Vital Signs Date Time Temp Pulse Resp B/P Pulse Ox O2 Delivery O2 Flow Rate FiO2 11/20/16 09:30 93 21 11/20/16 06:00 64 11/20/16 04:00 67 11/20/16 04:00 98.4 67 22 165/94 93 11/20/16 03:56 95 11/20/16 02:00 66 11/20/16 00:00 98.2 66 23 162/81 92 11/20/16 00:00 66 11/19/16 22:00 68 11/19/16 20:00 98.1 69 24 169/91 93 11/19/16 20:00 70 11/19/16 18:00 66 11/19/16 16:00 70 11/19/16 16:00 97.9 70 21 158/80 94 11/19/16 14:00 68 I/O 11/19/16 11/19/16 11/19/16 11/20/16 11/20/16 11/20/16 07:00 15:00 23:00 07:00 15:00 23:00 Intake Total 960 ml 1109 ml 760 ml 1130 ml Output Total 505 ml 5 ml 315 ml 402 ml Balance 455 ml 1104 ml 445 ml 728 ml Intake Oral 60 ml 60 ml 240 ml 240 ml IV Total 900 ml 1049 ml 520 ml 890 ml Output Urine Total 400 ml 300 ml 400 ml Gastric Drainage Total 100 ml 0 ml Drainage Total 5 ml 5 ml 15 ml 2 ml # Voids 1 # Bowel Movements 0 0 0 0 Result Diagram: 11/20/16 0337 11/20/16 0337 Imaging Last Impressions Chest X-Ray 11/17/16 0000 Signed Impressions: Service Date/Time: Thursday, November 17, 2016 23:52 - CONCLUSION: 1. Bibasilar subsegmental atelectasis. 2. Nasogastric tube with tip in stomach. Evaristo Reddy MD Objective Remarks GENERAL: NAD SKIN: Warm and dry. HEAD: Normocephalic. EYES: No scleral icterus. No injection or drainage. NECK: Supple, trachea midline. No JVD or lymphadenopathy. CARDIOVASCULAR: Regular rate and rhythm without murmurs, gallops, or rubs. RESPIRATORY: Breath sounds equal bilaterally. No accessory muscle use. GASTROINTESTINAL: Abdomen soft, non-tender, mildly distended. Incision c/d/i; NAI drain in place MUSCULOSKELETAL: No cyanosis, or edema. BACK: Nontender without obvious deformity. No CVA tenderness. A/P Assessment and Plan 76-year-old male with 1-Strangulated umbilical hernia with ischemic small bowel status post repair of incisional, incarcerated umbilical hernia, small bowel resection with primary anastomosis> NG tube discontinued today 11/20/16 and patient currently on full liquid diet. Management per general surgery and continue current antibiotics. 2-Chronic atrial flutter: Rate controlled currently. Appreciate input from cardiology. May need beta lexis, anticoagulation per general surgery, 3-Coronary artery disease: Resume ASA, Statin 4-Hyperlipidemia: Statin Prophylaxis: PPI/SCDs. Start subcutaneous Lovenox when okay with general surgery. Evaristo Hui MD Nov 20, 2016 12:18
[2016-11-20] MEDS: ENALAPRILAT 1.25 MG/ML VIAL IV PUSH PRN (17:58)
[2016-11-20] MEDS: ATORVASTATIN 10 MG TAB PO SCH (19:44)
--- NOTE | 2016-11-20 20:40 | MP ---
cc: CRISTOBAL STEIN MD DATE OF SURGERY: 11/17/2016 PREOPERATIVE DIAGNOSIS: Strangulated incarcerated incisional hernia. POSTOPERATIVE DIAGNOSIS: 1. Strangulated incarcerated incisional hernia. 2. Necrotic bowel. PROCEDURE PERFORMED: 1. Repair of incisional incarcerated umbilical hernia. 2. Small bowel resection with primarily anastomosis. SURGEON: Dr. Cristobal Stein. HOUSING RELOCATION: See OR sheet. ANESTHESIA: GETA. IV FLUIDS: 4200 cc ESTIMATED BLOOD LOSS: 100 cc DRAINS: 10 English subcutaneous drain placement. COMPLICATIONS: None. SPECIMEN: Small bowel with hernia sac sent to pathology. WOUND CLASSIFICATION Dirty, contaminated FINDINGS: Incarcerated strangulated hernia, perforation with small bowel necrosis. INDICATIONS: The patient is a 76 year-old male who presented with abdominal pain, nausea, vomiting, incarcerated ventral incisional hernia. He had further workup including CT scan confirming this. He did have a hernia repair approximately two years ago and the patient presented with the above named complaints. Decision was made for emergent operative intervention. The patient was transferred to [facility] and underwent the procedure. DETAILS OF PROCEDURE: The patient was taken to the OR suite, placed in supine position. He was prepped and draped in the usual sterile fashion after induction of general endotracheal anesthesia. Brief time-out done stating correct patient, procedure and surgical site with all in agreement with this. Attention directed to the superior midline of the umbilicus. A 15 blade scalpel was used to make a transverse incision 9 cm. Further dissection done with electro Bovie cautery. Hemostat was used to further delineate the hernia sac and mobilize this. Dissection done with hemostat and electro Bovie cautery down to intact fascia. There was evidence of necrotic bowel which was strangulated and unreducible. Once the hernia sac was excised and mobilized, small bowel was brought through the abdominal wound. The bowel was noted to be markedly edematous. The mesentery was very edematous as well. The small bowel was transected with a ANAMARIA blue load, proximal and distal to the necrotic portion of the small bowel. Next Lydia clamps and 2-0 silk ties were used to transect the mesentery in successive fashion. The mesentery was then oversewn with 2-0 silk suture for hemostasis and again given the fact that it was extremely edematous. Next the small bowel anastomosis was constructed. Two 3-0 silk tie stay sutures were placed. Small enterotomies were made end-to-side of the staple ends of the small bowel. The small bowel joined with Endo-ANAMARIA blue load stapler. Next the enterotomy was then closed with TA stapler in a transverse fashion. This was then oversewn and done with Lembert sutures with 3-0 silk ties. Next the mesenteric defect was then closed with two [id number] silk sutures. The anastomosis was noted to be patent. A single silk suture was placed at the crotch for better approximation. The bowel was then reduced into the abdomen. The abdomen was then irrigated with multiple liters of normal saline. This was then completely suctioned. Next the herniated defect was recognized and skin flaps were elevated to expose good healthy fascia. The fascia was brought together using [id number] #1 Prolene sutures in interrupted fashion. Following this, again the abdominal wall irrigated thoroughly. A 10 English NAI drain was then placed in the subcuticular area. The subcuticular space was then closed in layers and almita were then loosely placed to approximate the skin edges. Next the drain was secured in place with 2-0 nylon suture. Following this all lap and instrument counts were correct. The patient tolerated the procedure well. There is no intraoperative complications. The patient was extubated and taken stable to the PACU. The patient will was then transferred to ICU. MD YOVANY Slade/ARTURO /2:20 PM /8:27 PM BETTY
[2016-11-21] VITALS (9 sets, daily range): BP systolic 146–181; BP diastolic 78–92; PULSE 62–70; RESP 16–22; TEMP 97–98; O2SAT 94–96
[2016-11-21] MEDS: DOCUSATE SODIUM 100 MG CAP PO SCH ×2 (09:00→19:55)
--- NOTE | 2016-11-21 10:08 | HHI.PR ---
Subjective Remarks Follow-up incarcerated hernia repair 11/18/16-patient seen and examined, denies any abdominal pain. Currently nothing by mouth with NG tube in place. 11/19/16-patient seen and examined; currently rate control and denies any chest pain or shortness of breath. No abdominal pain. Nothing by mouth with NG tube in place. 11/20/16-patient seen and examined, NG tube was removed and patient tolerated clear. Denies any abdominal pain. 11/21/16-patient seen and examined; denies any abdominal pain and now tolerating full liquid without any complication nausea and vomiting. Objective Vitals Vital Signs Date Time Temp Pulse Resp B/P Pulse Ox O2 Delivery O2 Flow Rate FiO2 11/21/16 08:00 98.0 62 16 146/78 94 11/21/16 04:00 97.0 70 22 148/80 96 11/21/16 00:00 97.6 62 20 151/78 94 11/20/16 20:26 65 11/20/16 20:00 98.0 66 20 163/83 93 11/20/16 16:00 95.8 73 19 179/94 92 11/20/16 14:00 64 11/20/16 12:00 98.2 68 16 130/63 96 11/20/16 12:00 67 I/O 11/20/16 11/20/16 11/20/16 11/21/16 11/21/16 11/21/16 07:00 15:00 23:00 07:00 15:00 23:00 Intake Total 1130 ml 1329 ml 480 ml 240 ml Output Total 402 ml 405 ml 500 ml 300 ml Balance 728 ml 924 ml -20 ml -60 ml Intake Oral 240 ml 240 ml 480 ml 240 ml IV Total 890 ml 1089 ml Output Urine Total 400 ml 400 ml 500 ml 300 ml Stool Total 0 ml Gastric Drainage Total 0 ml Drainage Total 2 ml 5 ml # Voids 3 # Bowel Movements 0 1 0 Result Diagram: 11/20/1633611/20/16336 Objective Remarks GENERAL: NAD SKIN: Warm and dry. HEAD: Normocephalic. EYES: No scleral icterus. No injection or drainage. NECK: Supple, trachea midline. No JVD or lymphadenopathy. CARDIOVASCULAR: Regular rate and rhythm without murmurs, gallops, or rubs. RESPIRATORY: Breath sounds equal bilaterally. No accessory muscle use. GASTROINTESTINAL: Abdomen soft, non-tender, mildly distended. Incision c/d/i; NAI drain in place MUSCULOSKELETAL: No cyanosis, or edema. BACK: Nontender without obvious deformity. No CVA tenderness. Procedures 11/17/16 1. Repair of incisional incarcerated umbilical hernia. 2. Small bowel resection with primarily anastomosis. A/P Assessment and Plan 76-year-old male with 1-Strangulated umbilical hernia with ischemic small bowel status post repair of incisional, incarcerated umbilical hernia, small bowel resection with primary anastomosis> NG tube discontinued 11/20/16 and patient currently on full liquid diet. Management per general surgery and continue current antibiotics. 2-Chronic atrial flutter: Rate controlled currently. Appreciate input from cardiology. May need beta lexis, anticoagulation per general surgery, 3-Coronary artery disease: Continue ASA, Statin 4-Hyperlipidemia: Statin Prophylaxis: PPI/SCDs. Start subcutaneous Lovenox when okay with general surgery. Evaristo Hui MD Nov 21, 2016 10:08
[2016-11-21] MEDS: ceFAZolin 2 GM PREMIX 50 ML IV SCH ×2 (10:50→16:39)
[2016-11-21] MEDS: ASPIRIN 81 MG CHEW TAB CHEW SCH (10:50)
[2016-11-21] MEDS: metroNIDAZOLE 500 MG INJ 100 ML IV SCH ×2 (10:50→16:39)
[2016-11-21] MEDS: PANTOPRAZOLE SOD 40 MG DELAYED RELEASE TAB PO SCH (10:51)
[2016-11-21] MEDS: SODIUM CHLORIDE 0.9% FLUSH 5 ML FLUSH IVF SCH ×2 (10:52→19:57)
--- NOTE | 2016-11-21 13:20 | HHI.PR ---
Subjective Subjective Notes pt doing well, denies pain, +bms, no nausea on fulls Objective Vitals/I&O Vital Signs Date Time Temp Pulse Resp B/P Pulse Ox O2 Delivery O2 Flow Rate FiO2 11/21/16 08:00 98.0 62 16 146/78 94 11/20/16 09:30 21 11/18/16 07:56 Nasal Cannula 2.00 Cardiovascular: Regular Lungs: Clear Abdomen: Other (incision slight reddness, NAI serosang) A/P Assessment and Plan POD 4 Sb resection with repair of incarcerated incisional hernia- doing well PLAN Advance to reg soft diet oob ok for dvt ppx heparin NAI sxn d/c planning tomorrow or Daquan Stein MD Nov 21, 2016 13:20
[2016-11-21] MEDS: HEPARIN SODIUM - SQ 10,000 UNITS/ML VIAL SQ SCH ×2 (14:00→19:55)
[2016-11-21] MEDS: ATORVASTATIN 10 MG TAB PO SCH (19:56)
[2016-11-21] MEDS: ENALAPRILAT 1.25 MG/ML VIAL IV PUSH PRN (19:58)
[2016-11-22] VITALS (10 sets, daily range): BP systolic 127–169; BP diastolic 66–92; PULSE 55–78; RESP 16–20; TEMP 97.2–98.1; O2SAT 92–98
[2016-11-22] MEDS: ceFAZolin 2 GM PREMIX 50 ML IV SCH ×4 (00:43→18:24)
[2016-11-22] MEDS: metroNIDAZOLE 500 MG INJ 100 ML IV SCH ×2 (00:43→09:55)
[2016-11-22] MEDS: HEPARIN SODIUM - SQ 10,000 UNITS/ML VIAL SQ SCH ×3 (05:10→22:00)
[2016-11-22] MEDS: PANTOPRAZOLE SOD 40 MG DELAYED RELEASE TAB PO SCH (09:54)
[2016-11-22] MEDS: ASPIRIN 81 MG CHEW TAB CHEW SCH (09:54)
[2016-11-22] MEDS: DOCUSATE SODIUM 100 MG CAP PO SCH ×2 (09:54→20:33)
[2016-11-22] MEDS: SODIUM CHLORIDE 0.9% FLUSH 5 ML FLUSH IVF SCH ×2 (09:55→20:34)
--- NOTE | 2016-11-22 14:10 | EKG ---
Date Performed: 11/22/2016 Time Performed: 12:14:07 PTAGE: 76 years EKG: Sinus rhythm WITH FIRST DEGREE AV BLOCK POSSIBLE LEFT ATRIAL ENLARGEMENT MODERATE INTRAVENTRICULAR CONDUCTION DE LAY NONSPECIFIC T-WAVE ABNORMALITY ABNORMAL ECG COMPARED TO PRIOR ELECTROCARDIOGRAM, Sinus rhythm has replaced atrial flutter. PREVIOUS TRACING : 11/18/2016 00.09 DOCTOR: Luis Patel Interpretating Date/Time 11/22/2016 14:08:27
--- NOTE | 2016-11-22 16:03 | HHI.PR ---
Subjective Subjective Notes Up to chair Awaiting Cardiology visit Objective Vitals/I&O Vital Signs Date Time Temp Pulse Resp B/P Pulse Ox O2 Delivery O2 Flow Rate FiO2 11/22/16 15:59 97.9 67 17 127/80 92 11/21/16 18:13 21 11/18/16 07:56 Nasal Cannula 2.00 Cardiovascular: Regular Lungs: Clear Abdomen: Other (transverse incision ---c/d/i; NAI in place with minimal SS drainage ) Extremities: No edema A/P Assessment and Plan 76yo male s/p exlap for incarcerated umbilical hernia -Regular diet -OOB -Cardiology to eval patient again today -Will plan to keep tonight in light of bradycardic event this morning -Discusses with SIMEON Floyd Attending Statement pt seen at bedside bradycardia cardio to eval Attestation The exam, history, and the medical decision-making described in the above note were completed with the assistance of the mid-level provider. I reviewed and agree with the findings presented. I attest that I had a [id number] encounter with the patient on the same day, and personally performed and documented my assessment and findings in the medical record. Patricia Abbott Nov 22, 2016 16:03 Daquan Stein MD Dec 03, 2016 16:43
--- NOTE | 2016-11-22 16:41 | PD.CARD.PN ---
Subjective Subjective Remarks Pt without complaints Objective Medications Current Medications Medications (Trade) Dose Ordered Sig/Sarah Route Start Time Stop Time Status Last Admin (NS Flush) 2 ml UNSCH PRN IVF 11/17/16 23:45 (NS Flush) 2 ml BID IVF 11/17/16 23:45 11/22/16 09:55 (Zofran Inj) 4 mg Q6H PRN IV 11/17/16 23:45 (Colace) 100 mg BID PO 11/17/16 23:45 11/22/16 09:54 (Benadryl Inj) 25 mg Q6H PRN IV 11/17/16 23:45 (Toradol Inj) 30 mg Q6H PRN IVP 11/17/16 23:45 11/22/16 23:44 11/18/16 20:30 ([place] 5-325 Mg) 1 tab Q4H PRN PO 11/17/16 23:45 (Morphine Inj) 4 mg Q3H PRN IV 11/17/16 23:45 11/18/16 00:30 (Narcan Inj) 0.4 mg UNSCH PRN IV 11/17/16 23:45 (Chloraseptic [place]) 2 spray Q2H PRN OROPHARYNG 11/18/16 19:15 11/18/16 22:50 (Vasotec Inj) 1.25 mg Q6H PRN IV PUSH 11/18/16 19:15 11/21/16 19:58 Morphine Sulfate 2 mg 2 mg Q3H PRN IV PUSH 11/18/16 19:15 Cefazolin Sodium/ Dextrose 50 ml @ 100 mls/hr Q8H IV 11/19/16 08:00 11/22/16 09:55 (Flagyl 500 Mg Inj) 100 ml @ 100 mls/hr Q8H IV 11/19/16 08:30 11/22/16 09:55 (Protonix) 40 mg DAILY PO 11/21/16 09:00 11/22/16 09:54 (Aspirin Chew) 81 mg DAILY CHEW 11/21/16 09:00 11/22/16 09:54 (Lipitor) 10 mg HS PO 11/20/16 21:00 11/21/16 19:56 (Heparin Inj) 5,000 units Q8HR SQ 11/21/16 14:00 11/22/16 05:10 Vital Signs / I&O Vital Signs Date Time Temp Pulse Resp B/P Pulse Ox O2 Delivery O2 Flow Rate FiO2 11/22/16 15:59 97.9 67 17 127/80 92 11/22/16 14:15 93 11/22/16 12:00 97.4 63 16 138/88 94 11/22/16 08:00 97.9 64 16 155/87 95 11/22/16 04:00 97.4 78 20 161/82 98 11/22/16 00:00 97.2 66 20 161/78 97 11/21/16 21:10 170/78 11/21/16 20:00 97.4 65 20 181/90 95 11/21/16 19:55 63 11/21/16 18:13 94 21 I/O 11/21/16 11/21/16 11/21/16 11/22/16 11/22/16 11/22/16 07:00 15:00 23:00 07:00 15:00 23:00 Intake Total 240 ml 1200 ml 630 ml 240 ml 720 ml Output Total 300 ml 420 ml 450 ml 400 ml 840 ml Balance -60 ml 780 ml 180 ml -160 ml -120 ml Intake Oral 240 ml 1200 ml 480 ml 240 ml 720 ml IV Total 150 ml Output Urine Total 300 ml 400 ml 450 ml 400 ml 840 ml Drainage Total 0 ml 20 ml 0 ml # Voids 6 # Bowel Movements 0 2 0 0 1 Physical Exam GENERAL: Well developed, well nourished. No acute distress. HEENT: Jugular venous pressure is normal. CHEST: Lungs clear to auscultation bilaterally. Unlabored respiratory effort. CARDIAC: Regular rate and rhythm without S3, S4, or murmur. ABDOMEN: Soft, nontender, no hepatosplenomegaly. Bowel sounds present. EXTREMITIES: No clubbing, cyanosis, or edema. Assessment and Plan Assessment and Plan ECG - non-conducted PAC's on tele today, HR stable in mid 50's -no indication for pacer CAD- stable ok for d/c from CV perspective Kalani Best MD Nov 22, 2016 16:41
--- NOTE | 2016-11-22 17:28 | HHI.PR ---
Subjective Remarks Follow-up incarcerated hernia repair 11/18/16-patient seen and examined, denies any abdominal pain. Currently nothing by mouth with NG tube in place. 11/19/16-patient seen and examined; currently rate control and denies any chest pain or shortness of breath. No abdominal pain. Nothing by mouth with NG tube in place. 11/20/16-patient seen and examined, NG tube was removed and patient tolerated clear. Denies any abdominal pain. 11/21/16-patient seen and examined; denies any abdominal pain and now tolerating full liquid without any complication nausea and vomiting. 11/22/16-patient still examined; tolerated by mouth without any complication nausea and vomiting. Patient with episode of bradycardia on telemetry however asymptomatic Objective Vitals Vital Signs Date Time Temp Pulse Resp B/P Pulse Ox O2 Delivery O2 Flow Rate FiO2 11/22/16 15:59 97.9 67 17 127/80 92 11/22/16 14:15 93 11/22/16 12:00 97.4 63 16 138/88 94 11/22/16 08:00 97.9 64 16 155/87 95 11/22/16 04:00 97.4 78 20 161/82 98 11/22/16 00:00 97.2 66 20 161/78 97 11/21/16 21:10 170/78 11/21/16 20:00 97.4 65 20 181/90 95 11/21/16 19:55 63 11/21/16 18:13 94 21 I/O 11/21/16 11/21/16 11/21/16 11/22/16 11/22/16 11/22/16 06:59 14:59 22:59 06:59 14:59 22:59 Intake Total 240 ml 1200 ml 630 ml 240 ml 720 ml Output Total 300 ml 420 ml 450 ml 400 ml 840 ml Balance -60 ml 780 ml 180 ml -160 ml -120 ml Intake Oral 240 ml 1200 ml 480 ml 240 ml 720 ml IV Total 150 ml Output Urine Total 300 ml 400 ml 450 ml 400 ml 840 ml Drainage Total 0 ml 20 ml 0 ml # Voids 6 # Bowel Movements 0 2 0 0 1 Result Diagram: 11/20/16 0337 11/20/16336 Objective Remarks GENERAL: NAD SKIN: Warm and dry. HEAD: Normocephalic. EYES: No scleral icterus. No injection or drainage. NECK: Supple, trachea midline. No JVD or lymphadenopathy. CARDIOVASCULAR: Regular rate and rhythm without murmurs, gallops, or rubs. RESPIRATORY: Breath sounds equal bilaterally. No accessory muscle use. GASTROINTESTINAL: Abdomen soft, non-tender, mildly distended. Incision c/d/i; NAI drain in place MUSCULOSKELETAL: No cyanosis, or edema. BACK: Nontender without obvious deformity. No CVA tenderness. Procedures 11/17/16 1. Repair of incisional incarcerated umbilical hernia. 2. Small bowel resection with primarily anastomosis. A/P Assessment and Plan 76-year-old male with 1-Strangulated umbilical hernia with ischemic small bowel status post repair of incisional, incarcerated umbilical hernia, small bowel resection with primary anastomosis> NG tube discontinued 11/20/16 and patient currently on Healthy diet. Management per general surgery and continue current antibiotics. 2-Chronic atrial flutter: Rate controlled currently. Appreciate input from cardiology. beta lexis contraindicated at this point due to bradycardia and skipped beats, anticoagulation per general surgery, 3-Coronary artery disease: Continue ASA, Statin 4-Hyperlipidemia: Statin Prophylaxis: PPI/SCDs. Evaristo Hui MD Nov 22, 2016 17:28
[2016-11-22] MEDS: ATORVASTATIN 10 MG TAB PO SCH (20:33)
[2016-11-23] MEDS: metroNIDAZOLE 500 MG INJ 100 ML IV SCH ×2 (00:52→07:59)
[2016-11-23 04:20] VITALS: BP 140/66; PULSE 69; RESP 18; TEMP 97.5; O2SAT 96
[2016-11-23] MEDS: HEPARIN SODIUM - SQ 10,000 UNITS/ML VIAL SQ SCH ×2 (05:38→12:53)
--- NOTE | 2016-11-23 07:56 | HHI.PR ---
Subjective Subjective Notes pt doing well, bradycardia yesterday, no symptoms cardio eval Objective Vitals/I&O Vital Signs Date Time Temp Pulse Resp B/P Pulse Ox O2 Delivery O2 Flow Rate FiO2 11/23/16 04:20 97.5 69 18 140/66 96 11/22/16 18:33 21 Cardiovascular: Regular Lungs: Clear Abdomen: Other (soft, right side minimal erythema, NAI in place serosang, ) A/P Assessment and Plan POD 6 Sb resection with repair of incarcerated incisional hernia- doing well PLAN reg soft diet cardio eval states ok to d/c oob ok for dvt ppx heparin NAI sxn d/c planning today Daquan Stein MD Nov 23, 2016 07:56
[2016-11-23] MEDS: DOCUSATE SODIUM 100 MG CAP PO SCH (07:58)
[2016-11-23] MEDS: PANTOPRAZOLE SOD 40 MG DELAYED RELEASE TAB PO SCH (07:58)
[2016-11-23] MEDS: ceFAZolin 2 GM PREMIX 50 ML IV SCH (07:58)
[2016-11-23] MEDS: ASPIRIN 81 MG CHEW TAB CHEW SCH (07:58)
[2016-11-23] MEDS: SODIUM CHLORIDE 0.9% FLUSH 5 ML FLUSH IVF SCH (07:59)
[2016-11-23 08:00] VITALS: BP 151/81; PULSE 98; RESP 18; TEMP 97.3; O2SAT 94
--- NOTE | 2016-11-23 09:52 | HHI.PR ---
Subjective Remarks Follow-up incarcerated hernia repair 11/18/16-patient seen and examined, denies any abdominal pain. Currently nothing by mouth with NG tube in place. 11/19/16-patient seen and examined; currently rate control and denies any chest pain or shortness of breath. No abdominal pain. Nothing by mouth with NG tube in place. 11/20/16-patient seen and examined, NG tube was removed and patient tolerated clear. Denies any abdominal pain. 11/21/16-patient seen and examined; denies any abdominal pain and now tolerating full liquid without any complication nausea and vomiting. 11/22/16-patient still examined; tolerated by mouth without any complication nausea and vomiting. Patient with episode of bradycardia on telemetry however asymptomatic 11/23/16-patient seen and examined-denies any abdominal pain, chest pain or shortness of breath. Clear by cardiology for discharge. Objective Vitals Vital Signs Date Time Temp Pulse Resp B/P Pulse Ox O2 Delivery O2 Flow Rate FiO2 11/23/16 08:00 97.3 98 18 151/81 94 11/23/16 04:20 97.5 69 18 140/66 96 11/22/16 23:33 97.9 68 18 152/66 97 11/22/16 20:55 140/68 11/22/16 20:23 55 11/22/16 20:00 98.1 62 18 169/92 96 11/22/16 18:33 21 11/22/16 15:59 97.9 67 17 127/80 92 11/22/16 14:15 93 11/22/16 12:00 97.4 63 16 138/88 94 I/O 11/22/16 11/22/16 11/22/16 11/23/16 11/23/16 11/23/16 07:00 15:00 23:00 07:00 15:00 23:00 Intake Total 240 ml 720 ml 480 ml 780 ml Output Total 400 ml 860 ml 600 ml 640 ml Balance -160 ml -140 ml -120 ml 140 ml Intake Oral 240 ml 720 ml 480 ml 480 ml IV Total 300 ml Output Urine Total 400 ml 840 ml 600 ml 600 ml Drainage Total 20 ml 40 ml # Voids 3 # Bowel Movements 0 1 0 Result Diagram: 11/20/16 0337 11/20/16 0337 Objective Remarks GENERAL: NAD SKIN: Warm and dry. HEAD: Normocephalic. EYES: No scleral icterus. No injection or drainage. NECK: Supple, trachea midline. No JVD or lymphadenopathy. CARDIOVASCULAR: Regular rate and rhythm without murmurs, gallops, or rubs. RESPIRATORY: Breath sounds equal bilaterally. No accessory muscle use. GASTROINTESTINAL: Abdomen soft, non-tender, mildly distended. Incision c/d/i; NAI drain in place MUSCULOSKELETAL: No cyanosis, or edema. BACK: Nontender without obvious deformity. No CVA tenderness. Procedures 11/17/16 1. Repair of incisional incarcerated umbilical hernia. 2. Small bowel resection with primarily anastomosis. A/P Assessment and Plan 76-year-old male with 1-Strangulated umbilical hernia with ischemic small bowel status post repair of incisional, incarcerated umbilical hernia, small bowel resection with primary anastomosis. Management per general surgery; will discontinue antibiotics. 2-Chronic atrial flutter: Rate controlled currently. Appreciate input from cardiology. beta lexis contraindicated at this point due to bradycardia and skipped beats, anticoagulation per general surgery, 3-Coronary artery disease: Continue ASA, Statin 4-Hyperlipidemia: Statin Prophylaxis: PPI/SCDs. Discharge Planning Medically stable and cleared for discharge Evaristo Hui MD Nov 23, 2016 09:52
[2016-11-23 11:05] VITALS: O2SAT 94
[2016-11-23 12:00] VITALS: BP 144/79; PULSE 62; RESP 17; TEMP 96; O2SAT 92
[2016-11-23] MEDS ORDERED: CEPHALEXIN MONOHYDRATE 500 MG CAP PO SCH (14:00)
[2016-11-23 16:00] VITALS: BP 151/86; PULSE 61; RESP 16; TEMP 96.9; O2SAT 94
[2016-11-23] MEDS ORDERED: PERC5TAB12 PO (16:03)
[2016-11-23] MEDS ORDERED: CEPH-460 PO (16:03)
--- NOTE | 2016-12-04 11:16 | PQ ---
Physician Query Response Document PATIENT: KALIE MARTÍNEZ : 1940 ADMIT DATE: 11/17/2016 5:02 PM DISCH DATE: 11/23/2016 4:41 PM RESPONDING PROVIDER #: [email or web address] QUERY TEXT: Conflicting Documentation Clarification Documentation of multiple diagnoses for the same clinical presentation appears in the record. Please clarify the diagnosis/diagnoses (umbilical versus incisional/ventral hernia repair) ___ Incarcerated incisional/ventral hernia ___ Incarcerated umbilical hernia ___ Other hernia ___ Clinically unable to determine If you have any additional questions/comments and/or concerns, please do not hesitate to reach out th e CDI/Coding Hotline, Ext. [phone]. The patient's Clinical Indicators include: H last three months to have recurrence of local hernia. ASSESSMENT: The patient is a 76 year old male, multiple medical issues previous umbilical hernia no w with recurrent incisional incarcerated strangulated ventral hernia. Operative report from 11/17/16 documents: POSTOPERATIVE DIAGNOSIS: 1. Strangulated incarcerated incisional hernia. 2. Necrotic bowel. PROCEDURE PERFORMED: 1. Repair of incisional incarcerated umbilical hernia. 2. Small bowel resection with primarily anastomosis. Progress Notes beginning 11/18/16 document: 1-Strangulated umbilical hernia with ischemic small renetta l status post repair of incisional, incarcerated umbilical hernia, small bowel resection with primary anastomosis Query created by: Dania Odonnell on 11/27/2016 9:26 AM RESPONSE TEXT: Incarcerated Incisional/ ventral hernia repair Electronically signed by: Daquan Stein MD 12/04/2016 11:12 AM
--- NOTE | 2016-12-12 09:59 | HHI.DS ---
Discharge Summary Admission Date Nov 17, 2016 at 17:02 Discharge Date: Nov 23, 2016 Admitting Diagnosis strangulated umbilical hernia, small bowel obstruction Brief History 76 year old male with incarcerated incisional hernia s/p SBR PE at Discharge Alert and awake; up to chair Cardio: RRR Resp: CTAB Abd: Soft; incision c/d/i; NAI with SS drainage \ Hospital Course This is a 76 year old male s/p small bowel resection with repair of incarcerated incisional hernia. Post operatively the patient was able to tolerate a regular diet. His pain was controlled. He had Cardiology following him for a few bradycardic episodes. The patient will follow up in the office as indicated on the DC information. Pt Condition on Discharge: Good Discharge Disposition: Discharge Home Discharge Instructions DIET: Follow Instructions for: As Tolerated, No Restrictions Activities you can perform: See Additionl Instruction Patricia Abbott Dec 12, 2016 09:59
== END 2016-11-23 16:41 | disposition home or self-care (01) | DRG 330 ==
LOC: PHED 15:01 → PHEDA 17:02 → N07B 19:56 → N03B 22:01 → N07A 11-20 15:41
PROVIDERS: ADMIT Surgery; ATTEND Surgery
PROC: 0WQF0ZZ Repair Abdominal Wall, Open Approach (ICD-10-PCS; 2016-11-17)
PROC: 0DBB0ZZ Excision of Ileum, Open Approach (ICD-10-PCS; principal; 2016-11-17 21:13)
PROC: 0D1B0ZB Bypass Ileum to Ileum, Open Approach (ICD-10-PCS; 2016-11-17 21:13)
DX: K43.0 Incisional hernia with obstruction, without gangrene (principal); K55.8 Other vascular disorders of intestine; I48.92 Unspecified atrial flutter; Z95.5 Presence of coronary angioplasty implant and graft; I25.10 Atherosclerotic heart disease of native coronary artery without angina pectoris; E78.00 Pure hypercholesterolemia, unspecified; Z87.891 Personal history of nicotine dependence; H91.90 Unspecified hearing loss, unspecified ear; E78.5 Hyperlipidemia, unspecified; Z95.2 Presence of prosthetic heart valve; Z79.82 Long term (current) use of aspirin; R00.1 Bradycardia, unspecified
CPT/HCPCS: 71010; 80048; 80053; 82805; 83605; 85014; 85018; 85025; 85027; 85610; 85730; 87641; 88302; 88305; 88307; 93005; 94150; 96374; 96375; C9113; J0690; J1644; J1885; J2270; J2405; J2710; J3010; J3480; J7030; J7120